=== PATIENT | female | born 1955 | race African-American/Black ===

== ENCOUNTER 2021-04-19 13:25 | Emergency (ER) | payer MEDICARE ==
[~2021-04-19] VITALS: Ht 167.6 cm; Wt 90.7 kg
== END 2021-04-19 15:42 ==
LOC: ER 14:44
DX: Z43.1 Encounter for attention to gastrostomy (principal); I10 Essential (primary) hypertension; G40.909 Epilepsy, unspecified, not intractable, without status epilepticus; F03.90 Unspecified dementia, unspecified severity, without behavioral disturbance, psychotic disturbance, mood disturbance, and anxiety; Z74.01 Bed confinement status; Z86.73 Personal history of transient ischemic attack (TIA), and cerebral infarction without residual deficits
CPT/HCPCS: 99283